=== PATIENT | male | born 1985 | race Caucasian/White ===

== ENCOUNTER 2018-02-09 01:47 | Emergency (ER) | payer OTHER ==
--- NOTE | 2018-02-09 02:35 | EDM.PDOC ---
ED HPI GENERAL MEDICAL PROBLEM - General Chief Complaint: Genitourinary Problem Stated Complaint: PAINFUL URINATION Time Seen by Provider: 02/09/18 02:35 Source of Information: Reports: Patient - History of Present Illness INITIAL COMMENTS - FREE TEXT/NARRATIVE: HISTORY AND PHYSICAL: History of present illness: [Patient presents with discomfort concerning right testicle he rates 3 out of 10 nonradiating, he has previous history of torsion on the right testicle has been pinned to prevent torsion. he also has vasectomy, painful urination. 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 Past medical history: As per history of present illness and as reviewed below otherwise noncontributory. Surgical history: As per history of present illness and as reviewed below otherwise noncontributory. Social history: No reported history of drug or alcohol abuse. Family history: As per history of present illness and as reviewed below otherwise noncontributory. Physical exam: HEENT: Atraumatic, normocephalic, pupils reactive, negative for conjunctival pallor or scleral icterus, mucous membranes moist, throat clear, neck supple, nontender, trachea midline. Lungs: Clear to auscultation, breath sounds equal bilaterally, chest nontender. Heart: S1S2, regular, negative for clicks, rubs, or JVD. Abdomen: Soft, nondistended, nontender. Negative for masses or hepatosplenomegaly. Negative for costovertebral tenderness. Pelvis: Stable nontender. Genitourinary: Prosthetic testicle on the left noted. Right testicle no mass scar or lesion tender epididymis no exudate at the meatus no redness warmth or swelling Rectal: Deferred. Extremities: Atraumatic, negative for cords or calf pain. Neurovascular unremarkable. Neuro: Awake, alert, oriented. Cranial nerves II through XII unremarkable. Cerebellum unremarkable. Motor and sensory unremarkable throughout. Exam nonfocal. Diagnostics: [UA with culture GC Chlamydia Patient refused ultrasound ] Therapeutics: [1 g Rocephin IM Azithromycin 1000 mg by mouth now Levaquin 500 mg by mouth daily #10 no refill Pyridium ] Impression: [Dysuria] Right epididymitis Definitive disposition and diagnosis as appropriate pending reevaluation and review of above. Groin Pain Score (Numeric/FACES): 4 - Related Data Allergies Allergy/AdvReac Type Severity Reaction Status Date / Time No Known Allergies Allergy Verified 02/09/18 02:03 Home Meds: Home Meds . [No Known Home Meds] 02/09/18 [History] Past Medical History - Past Health History Medical/Surgical History: Denies Medical/Surgical History - Infectious Disease History Infectious Disease History: Reports: Chicken Pox - Past Surgical History GI Surgical History: Reports: Cholecystectomy Male Surgical History: Reports: Vasectomy Social & Family History - Tobacco Use Smoking Status *Q: Former Smoker Used Tobacco, but Quit: Yes Month/Year Tobacco Last Used: 2009 - Caffeine Use Caffeine Use: Reports: Coffee - Recreational Drug Use Recreational Drug Use: No ED ROS GENERAL - Review of Systems Review Of Systems: ROS reveals no pertinent complaints other than HPI. ED EXAM, GENERAL - Physical Exam Exam: See Below Course - Vital Signs Last Recorded V/S: Last Vital Signs Temp 97.4 F 02/09/18 02:01 Pulse 81 02/09/18 02:01 Resp 12 02/09/18 02:01 BP 165/77 H 02/09/18 02:01 Pulse Ox 98 02/09/18 02:01 - Orders/Labs/Meds Orders: Active Orders 24 hr Category Date Time Status CHLAMYDIA AND GONORRHEA BY TMA Stat Lab 02/09/18 02:00 Received CULTURE URINE [RM] Stat Lab 02/09/18 02:00 Received Azithromycin [Zithromax] Med 02/09/18 03:01 Stat 1,000 mg PO NOW STA cefTRIAXone [Rocephin] 1,000 mg Med 02/09/18 03:00 Ordered Lidocaine 1% [Xylocaine-MPF 1%] 4 ml IM ONETIME Labs: Laboratory Tests 02/09/18 Range/Units 02:00 Urine Color YELLOW Urine Appearance CLEAR Urine pH 6.0 (5.0-8.0) Ur Specific [place] 1.020 (1.001-1.035) Urine Protein NEGATIVE (NEGATIVE) mg/dL Urine Glucose (UA) NEGATIVE (NEGATIVE) mg/dL Urine Ketones TRACE H (NEGATIVE) mg/dL Urine Occult Blood NEGATIVE (NEGATIVE) Urine Nitrite NEGATIVE (NEGATIVE) Urine Bilirubin NEGATIVE (NEGATIVE) Urine Urobilinogen 0.2 (<2.0) EU/dL Ur Leukocyte Esterase NEGATIVE (NEGATIVE) Urine RBC NONE SEEN (0-2/HPF) Urine WBC 0-1 (0-5/HPF) Ur Epithelial Cells NOT SEEN (NONE-FEW) Urine Bacteria RARE (NEGATIVE) Departure - Departure Time of Disposition: 03:04 Disposition: Home, Self-Care 01 Condition: Good Clinical Impression: Dysuria, Epididymitis - Discharge Information Referrals: PCP,None [Primary Care Provider] - Forms: ED Department Discharge Additional Instructions: Medication as prescribed Urine cultures are pending at this time and will take several days for results Take medication as directed Return if symptoms persist or worsen or fever nausea vomiting chills sweats or could develop that would prompt return to ER Follow-up with primary care in 2 weeks sooner as needed [facility] [address] [place] [id number] The following information is given to patients seen in the emergency department who are being discharged to home. This information is to outline your options for follow-up care. We provide all patients seen in our emergency department with a follow-up referral. The need for follow-up, as well as the timing and circumstances, are variable depending upon the specifics of your emergency department visit. If you don't have a primary care physician on staff, we will provide you with a referral. We always advise you to contact your personal physician following an emergency department visit to inform them of the circumstance of the visit and for follow-up with them and/or the need for any referrals to a consulting specialist. The emergency department will also refer you to a specialist when appropriate. This referral assures that you have the opportunity for follow-up care with a specialist. All of these measure are taken in an effort to provide you with optimal care, which includes your follow-up. Under all circumstances we always encourage you to contact your private physician who remains a resource for coordinating your care. When calling for follow-up care, please make the office aware that this follow-up is from your recent emergency room visit. If for any reason you are refused follow-up, please contact the [facility] emergency department at and asked to speak to the emergency department charge nurse. - My Orders Last 24 Hours: My Active Orders 02/09/18 02:00 CHLAMYDIA AND GONORRHEA BY TMA Stat CULTURE URINE [RM] Stat 02/09/18 03:00 cefTRIAXone [Rocephin] 1,000 mg Lidocaine 1% [Xylocaine-MPF 1%] 4 ml IM ONETIME 02/09/18 03:01 Azithromycin [Zithromax] 1,000 mg PO NOW STA - Assessment/Plan Last 24 Hours: My Active Orders 02/09/18 02:00 CHLAMYDIA AND GONORRHEA BY TMA Stat CULTURE URINE [RM] Stat 02/09/18 03:00 cefTRIAXone [Rocephin] 1,000 mg Lidocaine 1% [Xylocaine-MPF 1%] 4 ml IM ONETIME 02/09/18 03:01 Azithromycin [Zithromax] 1,000 mg PO NOW STA
[2018-02-09] MEDS ORDERED: cefTRIAXone 1,000 MG in Lidocaine 1% 4 ML IM ONE (03:00)
[2018-02-09] MEDS ORDERED: Azithromycin 250 MG Tab PO STA (03:01)
[2018-02-09] MEDS ORDERED: Phenazopyridine 200 MG Tab PO ONE (03:04)
== END 2018-02-09 03:54 | disposition home or self-care (01) ==
LOC: MW.ED 01:47
DX: N45.1 Epididymitis (principal); Z87.891 Personal history of nicotine dependence
CPT/HCPCS: 81001; 87086; 87491; 87591; 96372; 99283; A9270; J0696; 99282; J2001